=== PATIENT | female | born 1990 | race Two or more races ===

== ENCOUNTER 2018-08-27 08:10 | Emergency (ER) | payer MEDICAID ==
[2018-08-27 09:30] LABS: ABSOLUTE LYMPHOCYTES (AUTO) 1.3 10^3/uL (0.5-4.7); ABSOLUTE MONOCYTES (AUTO) 0.3 10^3/uL (0.1-1.4); BASOPHILS % (AUTO) 0.7 % (0-2); EOSINOPHILS % (AUTO) 0.2 % (0-6); HEMATOCRIT 41.6 % (36.0-47.0); HEMOGLOBIN 14.6 g/dL (12.0-15.5); LYMPHOCYTES % (AUTO) 23.2 % (13-45); MEAN CORPUSCULAR HEMOGLOBIN 31.4 pg (27.0-33.4); MEAN CORPUSCULAR HGB CONC 35.1 g/dL (32.0-36.0); MEAN CORPUSCULAR VOLUME 90 fl (80-97); MONOCYTES % (AUTO) 6.1 % (3-13); PLATELET COUNT 194 10^3/uL (150-450); RED BLOOD COUNT 4.65 10^6/uL (3.72-5.28); RED CELL DISTRIBUTION WIDTH 13.2 % (11.5-14.0); SEGMENTED NEUTROPHILS % (AUTO) 69.8 % (42-78); TOTAL CELLS COUNTED % (AUTO) 100 %; WHITE BLOOD COUNT 5.7 10^3/uL (4.0-10.5)
[2018-08-27 09:36] LABS: APPEARANCE,URINE SLIGHTLY-CLOUDY; BILIRUBIN,URINE NEGATIVE (NEGATIVE); COLOR,URINE YELLOW; GLUCOSE, URINE NEGATIVE (NEGATIVE); KETONES,URINE NEGATIVE (NEGATIVE); LEUKOCYTE ESTERASE,URINE TRACE (NEGATIVE); NITRITE,URINE NEGATIVE (NEGATIVE); PROTEIN,URINE NEGATIVE (NEGATIVE); URINE SPECIFIC GRAVITY 1.009; UROBILINOGEN,URINE NEGATIVE mg/dL (<2.0)
[2018-08-27 09:59] LABS: ALANINE AMINOTRANSFERASE 23 U/L (9-52); ALBUMIN 4.3 g/dL (3.5-5.0); ALKALINE PHOSPHATASE 64 U/L (38-126); ANION GAP 11 (5-19); ASPARTATE AMINO TRANSFERASE 14 U/L (14-36); BILIRUBIN,TOTAL 0.4 mg/dL (0.2-1.3); BLOOD UREA NITROGEN 9 mg/dL (7-20); CALCIUM 9.6 mg/dL (8.4-10.2); CARBON DIOXIDE 21 mmol/L (22-30); CHLORIDE 105 mmol/L (98-107); GLUCOSE 92 mg/dL (75-110); LIPASE 78.4 U/L (23-300); POTASSIUM 3.9 mmol/L (3.6-5.0); SODIUM 137.3 mmol/L (137-145); TOTAL PROTEIN 7.4 g/dL (6.3-8.2)
--- NOTE | 2018-08-27 10:32 | ER Document Report ---
ED GI/ - General Chief Complaint: Vaginal Bleeding Stated Complaint: VAGINAL BLEEDING Time Seen by Provider: 08/27/18 09:49 Information source: Patient Notes: Patient is a 28-year-old 002 at 7 weeks by dates who presents today with some vaginal discharge/bleeding this morning. No clots. Some suprapubic discomfort. No dysuria, fevers, or back pain. Patient has had some intermittent vomiting which is normal for her pregnancies. - HPI Patient complains to provider of: Other - See above Onset: Other - See above Timing/Duration: Gradual Quality of pain: Achy Severity at maximum: Mild Severity in ED: Mild Pain Level: 1 Location: Other - See above Vaginal bleeding (Compared to normal period): Spotting Sexual history: Active Associated symptoms: Other - See above Exacerbated by: Denies Relieved by: Denies Similar symptoms previously: Yes Recently seen / treated by doctor: Yes - Related Data Allergies/Adverse Reactions: No Known Allergies Allergy (Verified 08/27/18 08:11) Past Medical History - Social History Smoking Status: Never Smoker Frequency of alcohol use: None Drug Abuse: None Family History: Reviewed & Not Pertinent Patient has suicidal ideation: No Patient has homicidal ideation: No Renal/ Medical History: Denies: Hx Peritoneal Dialysis Review of Systems - Review of Systems Constitutional: denies: Fever Cardiovascular: denies: Chest pain, Palpitations Respiratory: denies: Short of breath Gastrointestinal: Vomiting Genitourinary: denies: Dysuria Musculoskeletal: denies: Leg swelling Skin: Other - no hives. denies: Rash Neurological/Psychological: Other - no slurred speech -: Yes All other systems reviewed and negative Physical Exam - Vital signs Vitals: Temp Pulse Resp BP Pulse Ox 98.8 F 72 18 112/67 99 08/27/18 08:15 08/27/18 08:15 08/27/18 08:15 08/27/18 08:15 08/27/18 08:15 Notes: Reviewed vital signs and nursing note as charted by RN. CONSTITUTIONAL: Alert and oriented and responds appropriately to questions. Well -appearing; well-nourished HEAD: Normocephalic; atraumatic EYES: No paleness to the conjunctiva CARD: Regular rate and rhythm; no murmurs; symmetric distal pulses RESP: Normal chest excursion without splinting or tachypnea; breath sounds clear and equal bilaterally ABD/GI: Normal bowel sounds; non-distended; soft, minimally tender to the suprapubic region without rebound or guarding; no palpable fundus BACK: The back appears normal and is non-tender to palpation, there is no CVA tenderness EXT: Normal ROM in all joints; non-tender to palpation; no edema SKIN: No acute lesions noted NEURO: Moves all extremities equally; Motor and sensory function intact PSYCH: The patient's mood and manner are appropriate. Grooming and personal hygiene are appropriate. Course - Re-evaluation Re-evalutation: 08/27/18 10:31 Given the history and physical examination we will get basic labs, order RhoGam , obtain a transvaginal ultrasound as well as perform a pelvic examination, and reassess. I do not believe that the patient requires any other imaging or laboratory work at this time. 08/27/18 12:43 Labs and ultrasound as recorded. Patient currently has no pain. Urine culture has been sent and given that the patient has no dysuria or fevers, with a white blood cell count is recorded, I will not start antibiotics at this moment. I did perform a pelvic examination and see no blood in the vaginal vault. Cervical loss is closed and nontender. Patient does have small little bump/ excoriations to the cervix which I have explained to the patient on port in for follow-up. 08/27/18 14:35 Exam is improved. Labs as recorded. Patient is feeling better. Stable vital signs. Ultrasound as recorded. Patient will be discharged home with follow-up with the health department - Vital Signs Vital signs: Temp Pulse Resp BP Pulse Ox 98.8 F 72 18 112/67 99 08/27/18 08:15 08/27/18 08:15 08/27/18 08:15 08/27/18 08:15 08/27/18 08:15 - Laboratory Result Diagrams: 08/27/18 09:13 08/27/18 09:13 Laboratory results interpreted by me: 08/27/18 08/27/18 09:13 09:13 Carbon Dioxide 21 L Beta HCG, Quant 32444.00 H Ur Leukocyte Esterase TRACE H Discharge - Discharge Clinical Impression: Threatened in early Condition: Good Disposition: HOME, SELF-CARE Additional Instructions: Come back immediately with any increased bleeding, fever, pain, vomiting, or any other acute problems. Please make sure that you follow-up regarding the urine culture as we have discussed and reassessment. Prescriptions: Ondansetron HCl [Zofran 4 mg Tablet] 1 - 2 tab PO Q4H PRN #10 tablet PRN Reason:
--- NOTE | 2018-08-27 12:03 | RADIOLOGY REPORT (SQ) ---
EXAM DESCRIPTION: U/S OB TRANSVAGINAL W/O DOP COMPLETED DATE/TIME: 08/27/2018 11:27 am REASON FOR STUDY: 5; preg; vag bleeding COMPARISON: None. TECHNIQUE: Transvaginal static and realtime grayscale images acquired of the pelvis. Additional alisia cted spectral and color Doppler images recorded. All images stored on PACs. [facility], [email or web address] CLINICAL DATES: DEMETRICE: 04/13/2019. EGA: 7 weeks 2 days LIMITATIONS: None. FINDINGS: FETUS: Single Living intrauterine . ULTRASOUND EGA: 7 weeks 0 day ULTRASOUND DEMETRICE: 04/15/2019 EFW: Not applicable less than 20 weeks. CRL: 0.97 cm FHR: 155 beats per minute. SURVEY: No visualized anomalies. AMNIOTIC FLUID: Adequate amount. PLACENTA: Not yet developed due to early gestation. SUBCHORIONIC BLEED: Yes. SIZE OF BLEED: 1.8 cm. UTERUS: No masses. No anomalies. CERVICAL LENGTH: 3.8 cm Closed. RIGHT ADNEXA: The right ovary measures 4.1 x 3.5 x 3.2 cm . A 3.0 x 3.0 x 2.0 cm right ovarian cyst. Normal vascular flow. No adnexal free fluid. LEFT ADNEXA: The left ovary measures 2.1 x 1.8 x 1.4 cm . Normal ovary with normal vascular flow. No adnexal free fluid. No adnexal masses. FREE FLUID: None. OTHER: No other significant finding. IMPRESSION: LIVING INTRAUTERINE . EGA 7 weeks 0 days Subchorionic small bleed Trimester of : First - 0 to 13 weeks. TECHNICAL DOCUMENTATION: JOB ID: [id number]- All Rights Reserved rev Reading location - IP/workstation name: [email or web address]
[2018-08-27 13:01] LABS: BACTERIA (WET MOUNT) 3+ BACTERIA SEEN; T.VAGINALIS (WET MOUNT) NO TRICHOMONAS SEEN; WBCS (WET MOUNT) 1+ WBCS SEEN; YEAST (WET MOUNT) NO YEAST SEEN
[2018-08-27 14:30] LABS: CHLAM PCR NOT DETECTED (NOT DETECT); GON PCR NOT DETECTED (NOT DETECT)
[2018-08-27 14:43] VITALS: BP 116/66
== END 2018-08-27 14:49 | disposition home or self-care (01) ==
LOC: ER 08:10
DX: O20.0 Threatened abortion (principal); O21.9 Vomiting of pregnancy, unspecified; Z3A.01 Less than 8 weeks gestation of pregnancy
CPT/HCPCS: 36415; 76817; 80053; 81001; 83690; 84702; 85025; 86900; 86901; 87086; 87210; 87491; 87591; 99284

== ENCOUNTER → 2018-11-25 | Outpatient (CLI) | payer SELFPAY ==
--- NOTE | 2018-11-25 14:01 | RADIOLOGY REPORT (SQ) ---
EXAM DESCRIPTION: U/S OB 14+ TRNABD 1GES W/O DOP COMPLETED DATE/TIME: 11/25/2018 1:28 pm REASON FOR STUDY: ENCTR FOR SUPERVISION OF OTHER NORMAL , 2ND TRIMESTER (Z34.82) Z34.82 EN COUNTER FOR SUPRVSN OF NORMAL , SECOND TRI COMPARISON: 08/27/2018 TECHNIQUE: Static and Dynamic grayscale imaging performed of gravid uterus using transabdominal appr oach. Additional selected color Doppler and spectral images recorded. All stored on PACS. LIMITATIONS: None. FINDINGS: FETUSES SEEN:1 EGA: 20 weeks 2 days Calculated using BPD,FL,HC,AC documented on images. No discrepancy with clinica l dates. DEMETRICE: 04/12/2019 EFW: 350 grams PERCENTILE: Not applicable. Fetus less than or equal to 20 weeks gestation. KENNEY: 7.3 PLACENTA: Posterior. GRADE: I PRESENTATION: Cephalic. ANATOMY: HEART RATE: 135 beats per minute. FOUR CHAMBER HEART: Visualized. THREE VESSEL CORD: Yes. CORD INSERTION: Visualized. KIDNEYS AND BLADDER: Visualized. Appear normal. STOMACH: Visualized. Appears normal. SPINE: Normal as visualized. BRAIN AND LATERAL VENTRICLES: Visualized. Appear normal. OTHER: No other significant finding. MATERNAL ADNEXA: Maternal ovaries not visualized. CERVICAL LENGTH: 3.4 cm. Closed. OTHER: No other significant finding. IMPRESSION: LIVING INTRAUTERINE . ESTIMATED GESTATIONAL AGE 20 weeks 2 days. NO VISUALIZED ANOMALIES. Trimester of : Second trimester - 13 weeks 1 day to 27 weeks 6 days. TECHNICAL DOCUMENTATION: JOB ID: [id number] [employer]- All Rights Reserved Reading location - IP/workstation name: [email or web address]
== END ==
LOC: RAD 12:17
PROVIDERS: ATTEND Nurse Practitioner
DX: Z34.82 Encounter for supervision of other normal pregnancy, second trimester (principal)
CPT/HCPCS: 76805

== ENCOUNTER → 2019-04-01 | Outpatient (CLI) | payer SELFPAY ==
--- NOTE | 2019-04-01 14:56 | RADIOLOGY REPORT (SQ) ---
EXAM DESCRIPTION: U/S OB 14+ TRNABD 1GES W/O DOP COMPLETED DATE/TIME: 04/01/2019 2:29 pm REASON FOR STUDY: ENCOUNTER FOR SUPERVISION OF OTHER NORMAL , 3RD TRIMESTER (Z34.83) Z34.83 ENCOUNTER FOR SUPRVSN OF NORMAL , THIRD TRIM COMPARISON: Ob ultrasound 11/25/2018 TECHNIQUE: Static and Dynamic grayscale imaging performed of gravid uterus using transabdominal appr oach. Additional selected color Doppler and spectral images recorded. All stored on PACS. LIMITATIONS: None. FINDINGS: FETUSES SEEN:1 EGA: 39 weeks 0 days Calculated using BPD,FL,HC,AC documented on images. No discrepancy with clinica l dates. DEMETRICE: 04/08/2019 EFW: 3264 g PERCENTILE: 48 percentile KENNEY: Low, 6.7 cm borderline oligohydramnios. PLACENTA: Fundal GRADE: II PRESENTATION: Cephalic. ANATOMY: HEART RATE: 145 beats per minute. FOUR CHAMBER HEART: Visualized. THREE VESSEL CORD: Yes. CORD INSERTION: Visualized. KIDNEYS AND BLADDER: There is left-sided hydroureter from the bladder to the renal pelvis. Urinary b ladder is markedly distended. These findings along with low KENNEY suggest posterior urethral valves or urethral outflow obstruction. The right kidney is not as well visualized as the left kidney due t o orientation. Mild right hydronephrosis is present. STOMACH: Visualized. Appears normal. SPINE: Normal as visualized. BRAIN AND LATERAL VENTRICLES: Visualized. Appear normal. OTHER: No other significant finding. MATERNAL ADNEXA: Maternal ovaries not visualized. CERVICAL LENGTH: Not visualized OTHER: No other significant finding. IMPRESSION: LIVING INTRAUTERINE . ESTIMATED GESTATIONAL AGE 39 weeks 0 days There is marked distention of the urinary bladder, left hydronephrosis and borderline oligohydr amnios. Findings are worrisome for urinary outflow obstruction at the level of the urethra, posterio r urethral valves may be present. Right kidney not as well seen as the left due to orientation , mild right hydronephrosis is present. Trimester of : Third trimester - 28 weeks to delivery. TECHNICAL DOCUMENTATION: JOB ID: [id number] [employer]- All Rights Reserved Reading location - IP/workstation name: [email or web address]
== END ==
LOC: RAD 12:53
PROVIDERS: ATTEND Midwife
DX: Z34.83 Encounter for supervision of other normal pregnancy, third trimester (principal)
CPT/HCPCS: 76805

== ENCOUNTER 2019-04-10 12:34 | Outpatient (CLI) | payer SELFPAY | END 2019-04-10 13:18 | disposition home or self-care (01) | LOC: LC 12:34 | PROVIDERS: ATTEND Obstetrics & Gynecology | PROC: 4A1HXCZ Monitoring of Products of Conception, Cardiac Rate, External Approach (ICD-10-PCS; principal; 2019-04-10) | DX: Z34.83 Encounter for supervision of other normal pregnancy, third trimester (principal); Z3A.39 39 weeks gestation of pregnancy | CPT/HCPCS: 59025 ==

== ENCOUNTER 2019-04-12 09:54 | Inpatient (IN) | payer SELFPAY ==
[2019-04-12 10:36] LABS: APPEARANCE,URINE SLIGHTLY-CLOUDY; BILIRUBIN,URINE NEGATIVE (NEGATIVE); COLOR,URINE YELLOW; GLUCOSE, URINE NEGATIVE (NEGATIVE); KETONES,URINE NEGATIVE (NEGATIVE); LEUKOCYTE ESTERASE,URINE NEGATIVE (NEGATIVE); NITRITE,URINE NEGATIVE (NEGATIVE); PROTEIN,URINE NEGATIVE (NEGATIVE); URINE SPECIFIC GRAVITY 1.018; UROBILINOGEN,URINE NEGATIVE mg/dL (<2.0)
[2019-04-12] MEDS ORDERED: RINGERS SOLUTION,LACTATED 1,000 ML IV PRN (10:52)
[2019-04-12] MEDS ORDERED: PENICILLIN G POTASSIUM 5,000,000 UNIT in DEXTROSE 5%-WATER 100 ML IV ONE (10:52)
[2019-04-12 10:57] LABS: URINE AMPHETAMINES SCREEN NEGATIVE; URINE BARBITURATES SCREEN NEGATIVE; URINE BENZODIAZEPINES SCREEN NEGATIVE; URINE COCAINE SCREEN NEGATIVE; URINE MARIJUANA (THC) SCREEN NEGATIVE; URINE METHADONE SCREEN NEGATIVE; URINE PHENCYCLIDINE SCREEN NEGATIVE
[2019-04-12] MEDS ORDERED: PENICILLIN G-K 5 MILLION UNIT VIAL IV ONE (11:15)
[2019-04-12] MEDS ORDERED: PENICILLIN G-K 5 MILLION UNIT VIAL ONE (11:20)
[2019-04-12] MEDS ORDERED: OXYTOCIN/NORMAL SALINE 20 UNIT/1,000 ML RTUINJ ONE (11:32)
[2019-04-12] MEDS ORDERED: MISOPROSTOL 0.2 MG TABLET ONE (11:32)
[2019-04-12] MEDS ORDERED: OXYTOCIN 10 UNIT/ML VIAL ONE (11:32)
[2019-04-12] MEDS ORDERED: LIDOCAINE 1% INJ-PF (10 MG/ML) 30 ML SDV ONE (11:32)
[2019-04-12 12:08] LABS: ABSOLUTE LYMPHOCYTES (AUTO) 1.2 10^3/uL (0.5-4.7); ABSOLUTE MONOCYTES (AUTO) 0.6 10^3/uL (0.1-1.4); ABSOLUTE NEUT (AUTO) 6.3 10^3/uL (1.7-8.2); BASOPHILS % (AUTO) 0.3 % (0-2); EOSINOPHILS % (AUTO) 0.2 % (0-6); HEMOGLOBIN 13.7 g/dL (12.0-15.5); LYMPHOCYTES % (AUTO) 15.2 % (13-45); MEAN CORPUSCULAR HEMOGLOBIN 31.7 pg (27.0-33.4); MEAN CORPUSCULAR HGB CONC 34.3 g/dL (32.0-36.0); MEAN CORPUSCULAR VOLUME 92 fl (80-97); MONOCYTES % (AUTO) 7.1 % (3-13); PLATELET COUNT 135 10^3/uL (150-450); RED BLOOD COUNT 4.33 10^6/uL (3.72-5.28); RED CELL DISTRIBUTION WIDTH 13.9 % (11.5-14.0); SEGMENTED NEUTROPHILS % (AUTO) 77.2 % (42-78); TOTAL CELLS COUNTED % (AUTO) 100 %; WHITE BLOOD COUNT 8.2 10^3/uL (4.0-10.5)
--- NOTE | 2019-04-12 12:32 | Admission Physical ---
Datetime Report Generated by CPN: 04/12/2019 12:31 CURRENT ADMISSION Hx Assessment: The History has been Reviewed and is Current Chief Complaint: Uterine Contractions; Suspected Ruptured Membranes Indication for Induction: Not Applicable Admit Impression : Term, Intrauterine ; Active Labor; Ruptured Membranes Admit Plan: Admit to Unit; Initiate Labor Protocol ALLERGIES Medication Allergies: No Medication Allergies: No Known Allergies (04/12/2019) Food Allergies: no Environmental Allergies: no OBSTETRICAL HISTORY EDC: 04/13/2019 00:00 : 3 Para: 2 Livin Gestational Diabetes: No Rh Sensitization: No Incompetent Cervix: No RENETTA: No Infertility: No ART Treatment: No Uterine Anomaly: No IUGR: No Hx Previous C/S: No Macrosomia: No Hx Loss/Stillborn: No PIH: No Hx : No Placenta Previa/Abruption: No Depression/PP Depression: No Post Hemorrhage: No Current Procedures: Ultrasound Obstetrical History Comments: - july 2012 NVD - july 2014 NVD G3-Current SEE RECORDS Alcohol: No Marijuana : No Cocaine: No Other Illicit Drugs: No Cigarettes: Never Smoker. [id number] MEDICAL HISTORY Diabetes: No Blood Transfusion: No Pulmonary Disease (Asthma, TB): No Breast Disease: No Hypertension: No Cpa Tax Surgery: No Heart Disease: No Hosp/Surgery: No Autoimmune Disorder: No Anesthetic Complications: No Kidney Disease: No Abnormal Pap Smear: No Neuro/Epilepsy: No Psychiatric Disorders: No Other Medical Diseases: No Hepatitis/Liver Disease: No Significant Family History: No Varicosities/Phlebitis: No Trauma/Violence : No Thyroid Dysfunction: No INFECTIOUS HISTORY Gonorrhea: No Genital Herpes: No Chlamydia: No Tuberculosis: No Syphilis: No Hepatitis: No HIV/AIDS Exposure: No Rash or Viral Illness: No HPV: No PHYSICAL EXAM General: Normal Neurologic: Normal Heart: Normal Lungs: Normal Pelvic Type: Adequate Vital Signs: Reviewed; Within Normal Limits VAGINAL EXAM Dilatation: 7 Effacement: 100 Station: -2 Contraction Comments: 3 MEMBRANES Membranes: Ruptured Amniotic Fluid Color: Clear FETUS A EGA: 39.6 Monitoring: External US FHR Category: Category I Presentation: Vertex Admit Comment: 28yo @ 39w6d into L_D with contractions and SROM at 0700 today. Pt. is B pos, RI, GBS positive no significant medical hx except for hydronephrosis of fetus on last ultrasound on 04/01. actim prom positive and pt found to be 7cm per RN. Plan is to administer PCN for GBS prophylaxis. anticipate delivery. PLANS FOR LABOR AND DELIVERY Labor and Delivery: None Pain Management: Natural Feeding Preference: Both Benefit of Breast Feed Discussed: Yes Circumcision: Yes INFORMED CONSENT Assignment: Melinda Michelle MD Signature: with User ID: Mono : with User ID: Mono
[2019-04-12] MEDS ORDERED: MISOPROSTOL 0.2 MG TABLET PR ONE (13:50)
--- NOTE | 2019-04-12 14:49 | Delivery Summary ---
Del Sum A-C Datetime Report Generated by CPN: 04/12/2019 14:49 DELIVERY PERSONNEL DELIVERY PERSONNEL: [id number] Delivery Doctor:: Mary Gardner CNM Labor and Delivery Nurse:: Rosalee Olson RN Labor and Delivery Nurse:: Nancy Weems, RNC Medical Record Librarian/SILK SPOOLER: Rosemarie Guzman, ST MATERNAL INFORMATION Delivery Anesthesia: None Medications After Delivery: Pitocin Drip 20 Units/1000ml NSS; Cytotec 1000mcg Per Rectum/Vagina Estimated Blood Loss (ml): 500 Maternal Complications: None Provider Comments: pt with urge to push and involuntarily pushing. Called into room and found to be 9.5/0 tried position changes but patient continued pushing and advanced to complete. Began pushing and quickly delivered a viable baby boy. Baby with vigorous respiratory effort and cry spontaneously at delivery. Placed on maternal abdomen, cord allowed to stop pulsating then clamped x2 and cut by FOB (3vc noted, cord blood collected). Placenta delivered spontaneously intact, fundus boggy and large clots, vaginal sweep performed and fundus firm at U- with minimal bleeding. 1000mcg cytotec placed rectally for prophylaxis. Vaginal and perineal inspection revealed laceration as stated and repaired in the usual manner. Mother and baby continue skin to skin and bonding at this time. LABOR SUMMARY EDC: 04/13/2019 00:00 No. Babies in Womb: 1 Attempted: No Labor Anesthesia: None LABOR INFORMATION Reason for Induction: Not Applicable Onset of Labor: 04/12/2019 07:00 Complete Dilatation: 04/12/2019 13:21 Oxytocin: N/A Group B Beta Strep: pos Antibiotics # of Doses: 1 Antibiotics Time of Last Dose: 1125 Name of Antibiotic Given: penicillin Reason Steroids Not Administered: Not Applicable MEMBRANES Membranes Rupture Method: Spontaneous Rupture of Membranes: 04/12/2019 07:00 Length of Rupture (hr): 6.58 Amniotic Fluid Color: Bloody Amniotic Fluid Amount: Small Amniotic Fluid Odor: Normal STAGES OF LABOR Stage 1 hr: 6 Stage 1 min: 21 Stage 2 hr: 0 Stage 2 min: 14 Stage 3 hr: 0 Stage 3 min: 9 Total Time in Labor hr: 6 Total Time in Labor min: 44 VAGINAL DELIVERY Episiotomy: None Laceration #1: Perineal Laceration Extension #1: First Degree Laceration Repair: Yes Laceration Repair Note: MLL that was hemostatic but repair with 2-[address] Sponge Count Correct: Yes Sharps Count Correct: Yes CSECTION DELIVERY Primary Indication: N/A Secondary Indication: N/A CSection Incidence: N/A Labor: N/A Elective: N/A CSection Incision: N/A BABY A INFORMATION Infant Delivery Date/Time: 04/12/2019 13:35 Method of Delivery: Vaginal Born in Route : No : N/A Forceps: N/A Vacuum Extraction: N/A Shoulder Dystocia : No PRESENTATION/POSITION BABY A Presentation: Compound Cephalic Presentation: Vertex Vertex Position: Left Occipital Anterior Breech Presentation: N/A PLACENTA INFORMATION BABY A Placenta Delivery Time : 04/12/2019 13:44 Placenta Method of Delivery: Spontaneous Placenta Status: Delivered SCORES BABY A Heart Rate 1 min: >100 bpm Resp Effort 1 min: Good Cry Reflex Irritability 1 min: Cough or Sneeze or Pulls Away Muscle Tone 1 min: Active Motion Color 1 min: Body [place], Extremities Blue SCORE 1 MIN: 9 Heart Rate 5 min: >100 bpm Resp Effort 5 min: Good Cry Reflex Irritability 5 min: Cough or Sneeze or Pulls Away Muscle Tone 5 min: Active Motion Color 5 min: Completely [place] Resuscitation Effort 5 min: N/A SCORE 5 MIN: 10 INFORMATION BABY A Gestational Age at Delivery: 39.6 Gestational Status: Full Term- 39- 40.6 Weeks Infant Outcome : Liveborn Condition : Stable Infant Sex: Male IDENTIFICATION BABY A Infant Verification Date/Time: 04/12/2019 14:17 ID Band Number: [id number] Mother's Name Verified: Yes Infant RN Verifying Infant: Paula Olson RN. EJose Blanco [employer] WEIGHT/LENGTH BABY A Birthweight (gm): 3512 Weight (lb): 7 Weight (oz): 12 Infant Length (in): 20.00 Infant Length (cm): 50.80 CORD INFORMATION BABY A No. Cord Vessels: 3 Nuchal Cord : N/A Cord Blood Taken: Yes-For Storage (Mom's Blood type +) Infant Suction: None ASSESSMENT BABY A Skin to Skin: Yes Skin to Skin Time (min): 60 SIGNATURES Assignment: Melinda Michelle MD Signature: with User ID: [email or web address] : with User ID: [email or web address]
[2019-04-12] MEDS ORDERED: PENICILLIN G POTASSIUM 2,500,000 UNIT in DEXTROSE 5%-WATER 50 ML IV SCH (14:53)
[2019-04-12] MEDS ORDERED: NA PHOS,M-B/NA PHOS,DI-BA (ADULT) 133 ML ENEMA PR PRN (15:28)
[2019-04-12] MEDS ORDERED: GLYCERIN/WITCH HAZEL LEAF 1 EACH MED..WIPE TP PRN (15:28)
[2019-04-12] MEDS ORDERED: PSEUDOEPHEDRINE HCL 30 MG TABLET PO PRN (15:28)
[2019-04-12] MEDS ORDERED: MEASLES,MUMPS&RUBELLA VACC/PF 0.5 ML VIAL SUBCUT PRN (15:28)
[2019-04-12] MEDS ORDERED: BENZOCAINE/MENTHOL AEROSOL SPRAY 56 ML TOP PRN (15:28)
[2019-04-12] MEDS ORDERED: DIBUCAINE 1% OINTMENT 56 GM TP PRN (15:28)
[2019-04-12] MEDS ORDERED: MAGNESIUM HYDROXIDE SUSP 30 ML UDCUP PO PRN (15:28)
[2019-04-12] MEDS ORDERED: PROMETHAZINE HCL 25 MG SUPP.RECT PR PRN (15:28)
[2019-04-12] MEDS ORDERED: ACETAMINOPHEN 325 MG TABLET PO PRN (15:28)
[2019-04-12] MEDS ORDERED: DIPH/PERTUSS(ACELL)/TETANUS VAC/PF 0.5 ML SYR (>=10YO) IM PRN (15:28)
[2019-04-12] MEDS ORDERED: OXYTOCIN/NORMAL SALINE 20 UNIT/1,000 ML RTUINJ IV PRN (15:28)
[2019-04-12] MEDS ORDERED: PROMETHAZINE HCL 25 MG TABLET PO PRN (15:28)
[2019-04-12] MEDS ORDERED: PROMETHAZINE HCL INJ 25 MG/1 ML VIAL IV PRN (15:28)
[2019-04-12] MEDS ORDERED: DIPHENHYDRAMINE HCL 25 MG CAPSULE PO PRN (15:28)
[2019-04-12] MEDS ORDERED: PENICILLIN G-K 5 MILLION UNIT VIAL IV SCH (16:00)
[2019-04-12 16:49] LABS: HEMATOCRIT 30.8 % (36.0-47.0); MEAN CORPUSCULAR HGB CONC 34.1 g/dL (32.0-36.0); MEAN CORPUSCULAR VOLUME 94 fl (80-97); PLATELET COUNT 126 10^3/uL (150-450); RED BLOOD COUNT 3.29 10^6/uL (3.72-5.28); RED CELL DISTRIBUTION WIDTH 13.7 % (11.5-14.0); WHITE BLOOD COUNT 14.1 10^3/uL (4.0-10.5)
[2019-04-12] MEDS: FERROUS SULFATE 325 MG TABLET PO SCH (17:53)
[2019-04-12] MEDS: DOCUSATE SODIUM 100 MG CAPSULE PO SCH (17:53)
[2019-04-12] MEDS: FAMOTIDINE 20 MG TABLET PO SCH (21:22)
[2019-04-12] MEDS: IBUPROFEN 800 MG TABLET PO SCH (21:22)
[2019-04-13 01:16] LABS: HEMOGLOBIN 10.5 g/dL (12.0-15.5)
[2019-04-13] MEDS: IBUPROFEN 800 MG TABLET PO SCH ×3 (05:04→21:30)
[2019-04-13 06:26] LABS: HEMATOCRIT 32.3 % (36.0-47.0); HEMOGLOBIN 11.2 g/dL (12.0-15.5); MEAN CORPUSCULAR HEMOGLOBIN 32.2 pg (27.0-33.4); MEAN CORPUSCULAR HGB CONC 34.6 g/dL (32.0-36.0); MEAN CORPUSCULAR VOLUME 93 fl (80-97); PLATELET COUNT 146 10^3/uL (150-450); RED BLOOD COUNT 3.46 10^6/uL (3.72-5.28); RED CELL DISTRIBUTION WIDTH 14.3 % (11.5-14.0)
[2019-04-13] MEDS: FAMOTIDINE 20 MG TABLET PO SCH ×2 (09:14→21:30)
[2019-04-13] MEDS: SENNOSIDES/DOCUSATE 8.6-50 MG 1 EACH TABLET PO SCH (09:14)
[2019-04-13] MEDS: PRENATAL VITAMIN W DHA CAPSULE PO SCH (09:14)
[2019-04-13] MEDS: DOCUSATE SODIUM 100 MG CAPSULE PO SCH ×2 (09:14→17:24)
[2019-04-13] MEDS: FERROUS SULFATE 325 MG TABLET PO SCH ×2 (09:14→17:24)
--- NOTE | 2019-04-13 12:40 | PDOC PROGRESS REPORT ---
Subjective-OB Progress Note for:: 04/13/19 Subjective: Pt doing well, no complaints. She reports light bleeding, reg diet and voiding without difficulty. Physical Exam (OB) Vital Signs: Temp Pulse Resp BP Pulse Ox 97.7 F 80 16 94/53 L 98 04/13/19 07:27 04/13/19 07:27 04/13/19 07:27 04/13/19 07:27 04/13/19 07:27 Intake & Output 04/12/19 04/13/19 04/14/19 06:59 06:59 06:59 Intake Total 250 350 Balance 250 350 Weight 71.7 kg - PIH/Pre-Eclampsia Clonus: Negative - Lochia Lochia Amount: Scant < 10 ml Lochia Color: Rubra/Red - Abdomen Description: Tender, Soft, Round Hernia Present: No Fundal Description: Firm, Midline Fundal Height: u/u - u/2 Objective-Diagnostic Laboratory: 04/13/19 06:11 04/12/19 04/12/19 04/13/19 11:28 16:16 06:11 WBC 14.1 H 11.0 H RBC 3.29 L 3.46 L Hgb 10.5 L D 11.2 L Hct 30.8 L 32.3 L MCV 94 93 MCH 32.0 32.2 MCHC 34.1 34.6 RDW 13.7 14.3 H Plt Count 126 L 146 L Blood Type B POSITIVE Assessment and Plan(PN) - Assessment and Plan (1) Vaginal delivery Is this a current diagnosis for this admission?: Yes - Time Spent with Patient Time with patient: Less than 15 minutes Medications reviewed and adjusted accordingly: Yes - Disposition Anticipated Discharge: Home Within: within 24 hours
[2019-04-14] MEDS: IBUPROFEN 800 MG TABLET PO SCH (06:20)
[2019-04-14] MEDS: DOCUSATE SODIUM 100 MG CAPSULE PO SCH (09:42)
[2019-04-14] MEDS: FERROUS SULFATE 325 MG TABLET PO SCH (09:42)
[2019-04-14] MEDS: PRENATAL VITAMIN W DHA CAPSULE PO SCH (09:42)
[2019-04-14] MEDS: SENNOSIDES/DOCUSATE 8.6-50 MG 1 EACH TABLET PO SCH (09:42)
[2019-04-14] MEDS: FAMOTIDINE 20 MG TABLET PO SCH (09:42)
--- NOTE | 2019-04-14 10:09 | PDOC PROGRESS REPORT ---
Subjective-OB Progress Note for:: 04/14/19 Subjective: Ready to go home. Physical Exam (OB) Vital Signs: Temp Pulse Resp BP Pulse Ox 97.4 F 65 15 104/63 99 04/14/19 07:18 04/14/19 07:18 04/14/19 07:18 04/14/19 07:18 04/14/19 07:18 Intake & Output 04/13/19 04/14/19 04/15/19 06:59 06:59 06:59 Intake Total 250 700 Balance 250 700 Weight 71.7 kg - PIH/Pre-Eclampsia Clonus: Negative Headache: Absent Epigastric Pain: No Visual Changes: No - Lochia Lochia Amount: Scant < 10 ml Lochia Color: Rubra/Red - Abdomen Description: Tender, Soft Hernia Present: No Bowel Sounds: Normoactive Flatus Presence: Present Stool: No Fundal Description: Firm, Midline Fundal Height: u/u - u/2 Objective-Diagnostic Laboratory: 04/13/19 06:11 Assessment and Plan(PN) - Time Spent with Patient Medications reviewed and adjusted accordingly: Yes - Disposition Anticipated Discharge: Home
--- NOTE | 2019-04-14 10:13 | PDOC DISCHARGE SUMMARY ---
Final Diagnosis Discharge Date: 04/14/19 - Final Diagnosis (1) Delivery normal Is this a current diagnosis for this admission?: Yes (2) Positive GBS test Is this a current diagnosis for this admission?: Yes (3) Is this a current diagnosis for this admission?: Yes Discharge Data - Discharge Medication Home Medications: No.137/Iron/Folic Acd [ Vitamin Tablet] 1 tab PO DAILY 07/18/14 Gestational Age: 39.6 wks Reason(s) for Admission: Onset of Labor Procedures: Ultrasound Intrapartum Procedure(s): Spontaneous Vaginal Delivery Complication(s): Laceration-Perineal Laceration-Degree: 1st - Data Baby 1 Male at 1 minute: 9 at 5 minutes: 10 Weight: 3.515 kg Home with Mother: Yes Complications: No - Diagnosis Test Laboratory: Temp Pulse Resp BP Pulse Ox 97.4 F 65 15 104/63 99 04/14/19 07:18 04/14/19 07:18 04/14/19 07:18 04/14/19 07:18 04/14/19 07:18 04/12/19 04/12/19 04/12/19 10:03 11:28 16:16 RBC 4.33 3.29 L Hgb 13.7 10.5 L D Hct 40.0 30.8 L Urine Opiates Screen NEGATIVE 04/13/19 06:11 RBC 3.46 L Hgb 11.2 L Hct 32.3 L Urine Opiates Screen - Discharge information/Instructions Discharge Activity: Activity As Tolerated, Balance Activity w/Rest, Pelvic Rest, Slowly Increase Activity, No tub bath Discharge Diet: Regular Disposition: HOME, SELF-CARE Follow up with: [facility] in: 4, Weeks
[2019-04-14 11:53] VITALS: BP 92/52
== END 2019-04-14 14:40 | disposition home or self-care (01) | DRG 807 ==
LOC: LC 09:54 → LR 10:53 → 2S 17:07
PROVIDERS: ADMIT Obstetrics & Gynecology; ATTEND Obstetrics & Gynecology
PROC: 10E0XZZ Delivery of Products of Conception, External Approach (ICD-10-PCS; principal; 2019-04-12)
PROC: 0HQ9XZZ Repair Perineum Skin, External Approach (ICD-10-PCS; 2019-04-12)
PROC: 4A1HXCZ Monitoring of Products of Conception, Cardiac Rate, External Approach (ICD-10-PCS; 2019-04-12)
DX: O99.824 Streptococcus B carrier state complicating childbirth (principal); Z37.0 Single live birth; O70.0 First degree perineal laceration during delivery; Z3A.39 39 weeks gestation of pregnancy
CPT/HCPCS: 36415; 80307; 81005; 84112; 85025; 85027; 86592; 86850; 86900; 86901; J2540; J2590; J3490